=== PATIENT | male | born 1985 | race Caucasian/White ===

== ENCOUNTER 2021-02-12 07:50 | Emergency (ER) | payer MEDICAID ==
[~2021-02-12] VITALS: Ht 175.3 cm; Wt 69.0 kg
[2021-02-12 07:55] VITALS: BP 119/67
[2021-02-12] MEDS ORDERED: ONDANSETRON 4MG ODT PO STA (08:34)
[2021-02-12] MEDS ORDERED: SODIUM CHLORIDE 0.9% 1,000 ML IV ONE (08:45)
[2021-02-12] MEDS ORDERED: LORAZEPAM 2MG/ML CPJ IV ONE (08:45)
[2021-02-12 09:37] LABS: BASOPHILS % 0.9 % (0.0-2.0); EOSINOPHILS % 0.2 % (0.0-5.0); HEMATOCRIT. 44.3 % (42.0-52.0); LYMPHOCYTES % 16.5 % (20.0-50.0); MEAN CORPUSCULAR HEMOGLOBIN 32.1 pg (28.0-32.0); MEAN CORPUSCULAR VOLUME 94.6 fL (80.0-94.0); MEAN PLATELET VOLUME 7.7 fl (7.4-10.4); MONOCYTES % 9.2 % (2.0-8.0); NEUTROPHILS % 73.2 % (40.0-76.0); PLATELET 354 x1000/uL (130-400); RED BLOOD CELL COUNT 4.68 mill/uL (4.7-6.1); RED CELL DISTRIBUTION WIDTH 13.1 % (11.6-14.6)
[2021-02-12 09:46] LABS: CHLORIDE 101 mEq/L (98-107)
[2021-02-12 10:07] LABS: ETHANOL BLOOD < 10 mg/dL
[2021-02-12] MEDS ORDERED: CHLO25CA10 PO (10:08)
[2021-02-12] MEDS ORDERED: CHLORDIAZEPOXIDE 25MG CAPSULE PO ONE (18:45)
[2021-02-12] MEDS ORDERED: ONDANSETRON HCL 4MG TABLET PO ONE (18:45)
== END 2021-02-12 23:29 | disposition home or self-care (01) ==
LOC: ER 07:50
DX: F10.139 Alcohol abuse with withdrawal, unspecified (principal); Y90.0 Blood alcohol level of less than 20 mg/100 ml
CPT/HCPCS: 36415; 80053; 80320; 85025; 99283; J7030; Z7610; G0480